=== PATIENT | male | born 1980 | race African-American/Black ===

== ENCOUNTER 2024-03-19 12:00 | Emergency (ER) | payer OTHER, SELFPAY ==
[2024-03-19 12:04] VITALS: BP 114/85; PULSE 74; TEMP 36.4; O2SAT 99; BMI 22.5
--- NOTE | 2024-03-19 12:13 | ECG_ITS ---
The [facility] Test Date: 2024-03-19 Pat Name: SANTA LR Department: Room: - Gender: Male Regulatory Affairs Intern: : 1980 Requested By: [id number] Order Number: [id number] Reading MD: JAIRO MAN Measurements Intervals [place] Rate: 74 P: 83 HI: 186 QRS: 29 QRSD: 88 T: 33 QT: 404 QTc: 432 Interpretive Statements 1100 Sinus rhythm 9110 normal ECG No previous ECG available for comparison Electronically Signed On 03-20-2024 8:07:21 EST by JAIRO MAN
--- NOTE | 2024-03-19 12:13 | CT_ITS ---
The [address] [address] Patient Name: SANTA LR MRN: [id number] date: 1980 Sex: M Assigned Patient Location: ED.MAIN Current Patient Location: ED.MAIN Accession/Order Number: [id number] Exam Date: 03/19/2024 13:18 Report Date: 03/19/2024 14:26 At the request of: ABDULLAHI LEDESMA Procedure: CT head/brain wo con EXAM: CT head/brain wo con HISTORY: seizure COMPARISON: None. TECHNIQUE: CT head noncontrast. Axial scans with reformatted coronal sagittal images. Individualized radiation dose reduction used for this exam. FINDINGS: Brain density normal without mass, edema or hemorrhage. No extra axial collection or hematoma. Normal size ventricles without mass effect or shift. Normal sanz-white matter differentiation. No fracture or suspicious bone lesion. Left frontal sinus and ethmoid sinus density consistent with sinusitis correlate clinically. Visualized mastoid middle ear cavities clear. CT/CT head/brain wo con IMPRESSION: 1. CT brain negative without acute abnormality. 2. left frontal sinus and ethmoid sinus retained secretions/mucosal thickening. Correlate for sinusitis. Electronically authenticated by: SANTA GARVIN Date: 03/19/2024 14:26
--- NOTE | 2024-03-19 12:13 | CT_ITS ---
The [address] [address] Patient Name: SANTA LR MRN: [id number] date: 1980 Sex: M Assigned Patient Location: ED.MAIN Current Patient Location: ER Accession/Order Number: [id number] Exam Date: 03/19/2024 13:18 Report Date: 03/19/2024 14:32 At the request of: ABDULLAHI LEDESMA Procedure: CT cervical spine wo con EXAM: CT cervical spine wo con HISTORY: seizure and fall COMPARISON: None. TECHNIQUE: CT cervical spine without contrast. Axial scans with reformatted coronal and sagittal images. Individualized radiation dose reduction used for this exam. FINDINGS: No fracture or subluxation. Prevertebral soft tissues unremarkable. No significant canal or foraminal encroachment. Minor degenerative changes C6-7 Pleural-based apical lung densities and and 6 mm nodular density right apex. Partially imaged. Consider follow-up. CT/CT cervical spine wo con IMPRESSION: Negative for fracture or subluxation. Apical lung abnormalities partially imaged. Consider follow-up if felt to be clinically indicated. Electronically authenticated by: SANTA GARVIN Date: 03/19/2024 14:32
--- NOTE | 2024-03-19 12:13 | ED_ITS ---
HPI - Syncope General Chief Complaint: Syncope Stated Complaint: SEIZURE Time Seen by Provider: 03/19/24 12:08 History of Present Illness HPI narrative: The patient apparently coming over the holidays to his his family from [place] he has not been able to sleep well for the last 4 days after he arrived from his trip. The patient all what he remembered that he woke up today in the hospital after the EMS brought him. According to the who called the EMS the patient was found beside his couch when he was sleeping on the floor and when he woke up he was confused The patient does have a tongue bite on the right side of the tongue He denies any history of trauma prior to this he also denies any history of drug use although he did had some alcohol beverage last night The patient denies any symptoms at the moment Related Data Previous Rx's ?Medication ?Instructions ?Recorded amoxicillin 875 mg-potassium 1 tab PO Q12H #14 tabs 03/19/24 clavulanate 125 mg tablet Allergies Allergy/AdvReac Type Severity Reaction Status Date / Time No Known Drug Allergies Allergy Verified 03/19/24 12:04 Review of Systems ROS Status of ROS 10 or more systems reviewed and unremark able except as noted in history and below PFSH PFSH Social History Little interest or pleasure in doing things: not at all Feeling down, depressed, or hopeless: not at all Exam Narrative Exam Narrative: Nurses notes and vital signs reviewed and patient is not hypoxic. General: Well-appearing and in no apparent distress. Skin: Warm, dry, no pallor noted. No rash. Head: Normocephalic, atraumatic. Neck: Supple, non-tender. Eye: Pupils are equal, round and EOMI. No scleral icterus. Ears, Nose, Mouth, and Throat: TM are clear, no nasal mucosal hypertrophy. Oral mucosa is moist, no posterior oropharynx erythema, uvula is mid-line Cardiovascular: Regular Rate and Rhythm without murmur, gallop or rub. Respiratory: No accessory muscle use or respiratory distress. Lungs are clear to auscultation, no wheezing, rales or rhonchi Chest Wall: no tenderness Back: No midline thoracic or lumbar vertebral tenderness. No CVA tenderness Musculoskeletal: normal ROM, no calf or popliteal tenderness, no lower extremity edema/swelling GI: Abdomen is soft, non-distended. Normal bowel sounds. No masses appreciated. No tenderness to palpation. No rebound, guarding, or rigidity noted. Neurological: A&O x4. No cranial nerve dysfunction observed. No truncal ataxia. Moves all extremities. Sensation intact. Psychiatric: Cooperative and interactive. Normal mood and affect. Constitutional Vital Signs, click to edit/add: Last Vital Signs Temp 97.5 F L 03/19/24 12:04 Pulse 74 03/19/24 12:04 Resp 18 03/19/24 12:04 BP 114/85 03/19/24 12:04 Pulse Ox 99 03/19/24 12:04 O2 Del Method Room Air 03/19/24 12:04 Course Vital Signs Vital signs: Vital Signs Temperature 97.5 F L 03/19/24 12:04 Pulse Rate 74 03/19/24 12:04 Respiratory Rate 18 03/19/24 12:04 Blood Pressure 114/85 03/19/24 12:04 Pulse Oximetry 99 03/19/24 12:04 Oxygen Delivery Method Room Air 03/19/24 12:04 Temperature 97.5 F L 03/19/24 12:04 Pulse Rate 74 03/19/24 12:04 Respiratory Rate 18 03/19/24 12:04 Blood Pressure 114/85 03/19/24 12:04 Pulse Oximetry 99 03/19/24 12:04 Oxygen Delivery Method Room Air 03/19/24 12:04 MDM - Syncope MDM Narrative Medical decision making narrative: The patient EKG showing sinus rhythm with a heart rate of [address] elevation or depression The patient was informed of the possible lung nodule he had on the CAT scan incidentally of the neck Otherwise CT of the cervical spine as well as CT head showed no acute pathology CBC and chemistry showed no acute pathology as well and the patient was monitored in the ER during which she had no complaint Neck collar was removed after the CT cervical spine came negative for any acute pathology The patient was instructed about the importance of sleeping well The patient is to follow up with primary care physician in next 2-3 days or to return to the emergency department should any of the signs or symptoms worsen or new symptoms develop. The patient agrees with the following Diagnosis and Treatment plan and the patient will be discharged home. Lab Data Labs: Lab Results 03/19/24 03/19/24 03/19/24 Range/Units 12:44 12:51 13:05 WBC 6.4 (4.0-11.0) 10^3/uL RBC 4.59 L (4.70-6.10) 10^6/uL Hgb 13.5 L (14.0-18.0) g/dL Hct 41.0 L (42.0-54.0) % MCV 89.3 (80.0-94.0) fL MCH 29.4 (25.9-34.0) pg MCHC 32.9 (29.9-35.2) g/dL RDW 12.7 (11.0-15.0) % Plt Count 290 (150-450) 10^3/uL MPV 8.6 L (9.5-13.5) fL Neut % (Auto) 58.3 (43.0-75.0) % Lymph % (Auto) 25.5 (20.5-60.0) % [place] % (Auto) 9.6 (1.7-12.0) % Eos % (Auto) 4.1 (0.9-7.0) % Baso % (Auto) 0.6 (0.2-2.0) % Neut # (Auto) 3.7 (1.4-6.5) 10^3/uL Lymph # (Auto) 1.6 (1.2-3.8) 10^3/uL [place] # (Auto) 0.6 (0.3-0.8) 10^3/uL Eos # (Auto) 0.3 (0.0-0.7) 10^3/uL Baso # (Auto) 0.0 (0.0-0.1) 10^3/uL Abs Immat Gran (auto) 0.12 H (0.00-0.03) 10^3/uL Imm/Tot Granulo (auto) 1.9 H (0.0-0.5) % PT 10.9 (9.0-11.6) sec INR 1.03 Sodium 140 (136-145) mmol/L Potassium 4.4 (3.5-5.1) mmol/L Chloride 103 (98-107) mmol/L Carbon Dioxide 28.5 (21.0-32.0) mmol/L Anion Gap 12.9 BUN 10.0 (7.0-18.0) mg/dL Creatinine 1.25 (0.70-1.30) mg/dL Est GFR ( Amer) >60 (>=60 mL/min/1.73m^2) Est GFR (Non-Af Amer) >60 (>=60 mL/min/1.73m^2) BUN/Creatinine Ratio 8.0 Glucose 104 (74-106) mg/dL Calcium 9.3 (8.5-10.1) mg/dL Magnesium 2.0 (1.8-2.4) mg/dL Total Bilirubin 0.6 (0.2-1.0) mg/dL AST 24 (15-37) U/L ALT 21 (16-63) U/L Alkaline Phosphatase 62 (46-116) U/L Troponin I High Sens 10.6 (4.0-76.1) pg/mL Total Protein 7.5 (6.4-8.2) g/dL Albumin 3.8 (3.4-5.0) g/dL Globulin 3.7 g/dL Albumin/Globulin Ratio 1.0 Urine Opiates Screen Negative (NEGATIVE) Ur Buprenorphine Scrn Negative (NEGATIVE) Ur Oxycodone Screen Negative (NEGATIVE) Urine Methadone Screen Negative (NEGATIVE) Ur Barbiturates Screen Negative (NEGATIVE) U Tricyclic Antidepress Negative (NEGATIVE) Ur Phencyclidine Scrn Negative (NEGATIVE) Ur Amphetamines Screen Negative (NEGATIVE) U Methamphetamines Scrn Negative (NEGATIVE) U Benzodiazepines Scrn Negative (NEGATIVE) Urine Cocaine Screen Negative (NEGATIVE) U Cannabinoids Screen Positive A (NEGATIVE) Ethanol Quant <3 mg/dL Discharge Plan Discharge Chief Complaint: Syncope Clinical Impression: Seizure, Tongue biting Patient Disposition: Home, Self-Care Time of Disposition Decision: 14:46 Condition: Good Prescriptions / Home Meds: New amoxicillin-pot clavulanate 875-125 mg tablet 1 tab PO Q12H Qty: 14 0RF Print Language: Guyanese Instructions: New-Onset Seizure in Adults (ED), Pulmonary Nodules (ED) Referrals: Physician,Non-Staff, MD [Primary Care Provider] - 1 week Discharge Date/Time: 03/19/24 14:52
[2024-03-19] MEDS: 0.9 % SODIUM CHLORIDE 1,000 ML 1000 ML IV (12:54)
[2024-03-19 13:01] LABS: Basophils Percent Auto 0.6 % (0.2-2.0); Eosinophils Absolute Auto 0.3 10^3/uL (0.0-0.7); Eosinophils Percent Auto 4.1 % (0.9-7.0); Hemoglobin 13.5 g/dL (14.0-18.0); Immature Granulocytes Abs Auto 0.12 10^3/uL (0.00-0.03); Immature Granulocytes Pct Auto 1.9 % (0.0-0.5); Lymphocytes Absolute Auto 1.6 10^3/uL (1.2-3.8); Lymphocytes Percent Auto 25.5 % (20.5-60.0); Mean Corpuscular HGB Conc 32.9 g/dL (29.9-35.2); Mean Corpuscular Hemoglobin 29.4 pg (25.9-34.0); Mean Corpuscular Volume 89.3 fL (80.0-94.0); Mean Platelet Volume 8.6 fL (9.5-13.5); Monocytes Absolute Auto 0.6 10^3/uL (0.3-0.8); Monocytes Percent Auto 9.6 % (1.7-12.0); Neutrophils Absolute Auto 3.7 10^3/uL (1.4-6.5); Neutrophils Percent Auto 58.3 % (43.0-75.0); Platelet Count 290 10^3/uL (150-450); Red Blood Count 4.59 10^6/uL (4.70-6.10); Red Cell Distribution Width 12.7 % (11.0-15.0); White Blood Count 6.4 10^3/uL (4.0-11.0)
[2024-03-19 13:13] LABS: Amphetamine Screen Urine NEGATIVE (NEGATIVE); Barbiturates Screen Urine NEGATIVE (NEGATIVE); Benzodiazepines Screen Urine NEGATIVE (NEGATIVE); Buprenorphine Screen Urine NEGATIVE (NEGATIVE); Cannabinoid Screen Urine POSITIVE (NEGATIVE); Cocaine Screen Urine NEGATIVE (NEGATIVE); Methadone Screen Urine NEGATIVE (NEGATIVE); Methamphetamines Screen Urine NEGATIVE (NEGATIVE); Opiate Screen Urine NEGATIVE (NEGATIVE); Oxycodone Screen Urine NEGATIVE (NEGATIVE); Phencyclidine Screen Urine NEGATIVE (NEGATIVE); Tricyclic Antidepressant Urine NEGATIVE (NEGATIVE)
[2024-03-19 13:30] LABS: Alanine Aminotransferase 21 U/L (16-63); Albumin Level 3.8 g/dL (3.4-5.0); Alkaline Phosphatase 62 U/L (46-116); Anion Gap 12.9; Aspartate Amino Transferase 24 U/L (15-37); Bilirubin Total 0.6 mg/dL (0.2-1.0); Calcium 9.3 mg/dL (8.5-10.1); Carbon Dioxide 28.5 mmol/L (21.0-32.0); Chloride 103 mmol/L (98-107); Estimated GFR (African America >60 (>=60 mL/min/1.73m^2); Estimated GFR (Non-African Ame >60 (>=60 mL/min/1.73m^2); Globulin 3.7 g/dL; Glucose 104 mg/dL (74-106); Potassium 4.4 mmol/L (3.5-5.1); Sodium 140 mmol/L (136-145); Total Protein 7.5 g/dL (6.4-8.2); Troponin I High Sensitivity 10.6 pg/mL (4.0-76.1)
[2024-03-19 13:44] LABS: INR 1.03; Prothrombin Time 10.9 sec (9.0-11.6)
[2024-03-19 13:48] LABS: Ethanol <3 mg/dL
== END 2024-03-19 14:52 | disposition home or self-care (01) ==
PROVIDERS: Emergency Provider Emergency Medicine
DX: R56.9 Unspecified convulsions (principal); S01.552A Open bite of oral cavity, initial encounter
CPT/HCPCS: 36415; 70450; 72125; 80053; 80307; 80320; 83735; 84484; 85025; 85610; 93005; 96360; 99285